=== PATIENT | male | born 1950 | race Caucasian/White ===

== ENCOUNTER 2018-07-24 12:25 | Observation (INO) | payer MEDICARE, SELFPAY ==
--- NOTE | 2018-07-24 13:04 | C.PDOC ---
History Of Present Illness 68 y/o male pt presents to the ER c/o left upper back pain radiating to the left shoulder for x2 days. Pt reports pain is sharp and denies trauma, heavy lifting, nausea and vomiting. Triage noted chest pain. Patient first denied chest pain but later on states that the chest pain started this morning but has now resolved. Time Seen by Provider: 07/24/18 12:50 Chief Complaint (Nursing): Chest Pain History Per: Patient History/Exam Limitations: no limitations Onset/Duration Of Symptoms: Days (x2) Current Symptoms Are (Timing): Still Present Past Medical History Reviewed: Historical Data, Nursing Documentation, Vital Signs Vital Signs: Last Vital Signs Temp 97.4 F L 07/24/18 12:30 Pulse 83 07/24/18 12:30 Resp 18 07/24/18 12:30 BP 173/94 H 07/24/18 12:30 Pulse Ox 100 07/24/18 12:30 - Medical History PMH: Arthritis, Bronchitis Surgical History: Appendectomy Family History: States: Unknown Family Hx - Social History Hx Alcohol Use: Yes Hx Substance Use: No - Immunization History Hx Tetanus Toxoid Vaccination: No Hx Influenza Vaccination: Yes Hx Pneumococcal Vaccination: No Review Of Systems Except As Marked, All Systems Reviewed And Found Negative. Constitutional: Positive for: Other (Pt is currently chest pain free at this time ) Cardiovascular: Positive for: Chest Pain Musculoskeletal: Positive for: Back Pain (upper ) Physical Exam - Physical Exam Appears: Non-toxic, No Acute Distress Skin: Normal Color, Warm, Dry Head: Atraumatic, Normacephalic Eye(s): bilateral: Normal Inspection, PERRL, EOMI Nose: Normal Oral Mucosa: Moist Chest: Symmetrical Cardiovascular: Rhythm Regular, No Murmur Respiratory: Normal Breath Sounds, No Rales, No Rhonchi, No Wheezing Gastrointestinal/Abdominal: Normal Exam, Soft, No Tenderness Back: No CVA Tenderness, No Vertebral Tenderness, Other (tenderness to left upper back area; reproducible pain; no gross deformity) Extremity: Normal ROM Extremity: Bilateral: Atraumatic, Normal Color And Temperature Neurological/Psych: Oriented x3, Normal Speech ED Course And Treatment - Laboratory Results Result Diagrams: 07/24/18 13:21 ECG: Interpreted By Me, Viewed By Me ECG Rhythm: Sinus Rhythm ECG Interpretation: Normal Interpretation Of ECG: normal intervals, normal axis. no ST/T wave abnormalities Rate From EC O2 Sat by Pulse Oximetry: 100 (RA) Pulse Ox Interpretation: Normal - Other Rad chest X-Ray: Read By Radiologist Interpretation: Accession No. : [id number]. Patient Name / ID : EWELINA ARECHIGA / [id number]. Exam Date : 07/24/2018 13:14:41 ( Approved ). Study Comment : Sex / Age : M / 68Y. Creator : Sonya Zelaya. Dictator : Cinda Aleman MD. Circuit Design Engineer : Girl Friday : Cinda Aleman MD. Approver2 : Report Date : 07/24/2018 13:18:02. My Comment : . Date of service: 07/24/2018. PROCEDURE: CHEST RADIOGRAPH, 1 VIEW. HISTORY: SOB. COMPARISON: 08/13/2015. FINDINGS: LUNGS: The lungs are well inflated and clear. PLEURA: No pneumothorax or pleural effusion. CARDIOVASCULAR: The heart is normal in size. No aortic atherosclerotic calcifications present. OSSEOUS STRUCTURES: Within normal limits for the patient's age. VISUALIZED UPPER ABDOMEN: Normal. OTHER FINDINGS: None. IMPRESSION: No active pulmonary disease. Medical Decision Making Medical Decision Making: Assessment: chest pain and upper back pain. Plans: -- chem labs -- blood work -- EKG -- CXR -- aspirin -- Toradol -- tylenol [facility] Pee Mondragon'ana service Disposition Discussed With : Sean Mondragon Doctor Will See Patient In The: Hospital Counseled Patient/Family Regarding: Studies Performed, Diagnosis - Disposition Disposition: HOSPITALIZED Disposition Time: 14:54 Condition: FAIR Forms: [facility] (Pakistani) - Clinical Impression Clinical Impression: Chest pain - Scribe Statement The provider has reviewed the documentation as recorded by the Scribe Finley Do Provider Attestation: All medical record entries made by the Scribe were at my direction and personally dictated by me. I have reviewed the chart and agree that the record accurately reflects my personal performance of the history, physical exam, medical decision making, and the department course for this patient. I have also personally directed, reviewed, and agree with the discharge instructions and disposition.
[2018-07-24 13:18] LABS: BASO % 0.7 % (0.0-2.0); EOS # 0.3 K/uL (0.0-0.7); EOS % 4.4 % (0.0-4.0); LYMPH % 16.5 % (20.0-40.0); MEAN CELL VOLUME 91.8 fL (80.0-94.0); MEAN CORPUSCULAR HEMOGLOBIN 30.2 pg (27.0-31.0); MEAN CORPUSCULAR HGB CONC 32.9 g/dL (33.0-37.0); MEAN PLATELET VOLUME 10.9 fL (7.2-11.7); MONO # 0.4 K/uL (0.0-0.8); MONO % 6.1 % (0.0-10.0); NEUT # 4.6 K/uL (1.8-7.0); NEUT % 72.3 % (50.0-75.0); RBC 4.65 Mil/uL (4.40-5.90); RED CELL DISTRIBUTION WIDTH 15.2 % (11.5-14.5); WHITE BLOOD COUNT 6.3 K/uL (4.8-10.8)
--- NOTE | 2018-07-24 13:54 | RAD ---
Date of service: 07/24/2018 PROCEDURE: CHEST RADIOGRAPH, 1 VIEW HISTORY: SOB COMPARISON: 08/13/2015. FINDINGS: LUNGS: The lungs are well inflated and clear. PLEURA: No pneumothorax or pleural effusion. CARDIOVASCULAR: The heart is normal in size. No aortic atherosclerotic calcifications present. OSSEOUS STRUCTURES: Within normal limits for the patient's age. VISUALIZED UPPER ABDOMEN: Normal. OTHER FINDINGS: None. IMPRESSION: No active pulmonary disease.
[2018-07-24 15:12] LABS: B-TYPE NATRIURETIC PEPTIDE 173 pg/mL (0-900)
[2018-07-24 15:35] LABS: ALB/GLOB RATIO 1.5 (1.0-2.1); ALBUMIN 4.3 g/dL (3.5-5.0); ALT/SGPT 22 U/L (21-72); AST/SGOT 31 U/L (17-59); BLOOD UREA NITROGEN 26 mg/dL (9-20); GFR NON-AFRICAN AMERICAN 55
[2018-07-24] MEDS ORDERED: Morphine 4 MG/ML VIAL IV STA (15:37)
[2018-07-24] MEDS ORDERED: (Novolin R) Insulin Human Regular 100 units/ml vial IV ONE (15:37)
[2018-07-24] MEDS ORDERED: (Novolin R) Insulin Human Regular 100 units/ml vial ONE (15:54)
[2018-07-24 17:52] VITALS: BMI 29.2
[2018-07-24] MEDS: Diclofenac Sodium Delayed Release 50 mg EC Tab PO SCH (18:16)
--- NOTE | 2018-07-24 19:42 | CP.PCM.HP ---
Past Patient History - Past Social History Smoking Status: Light Smoker < 10 Cigarettes Daily - PULMONARY Hx Bronchitis: Yes - ENDOCRINE/METABOLIC Hx Diabetes Mellitus Type 2: Yes - MUSCULOSKELETAL/RHEUMATOLOGICAL Hx Arthritis: Yes - PSYCHIATRIC Hx Substance Use: No - SURGICAL HISTORY Hx Appendectomy: Yes Meds Allergies/Adverse Reactions: Allergies Allergy/AdvReac Type Severity Reaction Status Date / Time No Known Allergies Allergy Verified 08/13/15 12:42 Physical Exam - Constitutional Appears: Well - Head Exam Head Exam: ATRAUMATIC, NORMAL INSPECTION, NORMOCEPHALIC - Eye Exam Eye Exam: EOMI, Normal appearance, PERRL Pupil Exam: NORMAL ACCOMODATION, PERRL - ENT Exam ENT Exam: Mucous Membranes Moist, Normal Exam - Neck Exam Neck exam: Positive for: Normal Inspection - Respiratory Exam Respiratory Exam: Decreased Breath Sounds - Cardiovascular Exam Cardiovascular Exam: REGULAR RHYTHM, +S1, +S2 - GI/Abdominal Exam GI & Abdominal Exam: Diminished Bowel Sounds, Soft - Rectal Exam Rectal Exam: Deferred Results - Vital Signs Recent Vital Signs: Last Vital Signs Temp 98.2 F 07/24/18 17:30 Pulse 69 07/24/18 18:46 Resp 20 07/24/18 17:30 BP 164/93 H 07/24/18 18:46 Pulse Ox 96 07/24/18 17:30 - Labs Result Diagrams: 07/24/18 13:21 07/24/18 14:36 Labs: Laboratory Results - last 24 hr 07/24/18 07/24/18 13:21 14:36 WBC 6.3 RBC 4.65 Hgb 14.0 Hct 42.7 MCV 91.8 MCH 30.2 MCHC 32.9 L RDW 15.2 H Plt Count 145 MPV 10.9 Neut % (Auto) 72.3 Lymph % (Auto) 16.5 L Woods % (Auto) 6.1 Eos % (Auto) 4.4 H Baso % (Auto) 0.7 Neut # (Auto) 4.6 Lymph # (Auto) 1.0 Woods # (Auto) 0.4 Eos # (Auto) 0.3 Baso # (Auto) 0.0 Sodium 133 Potassium 4.6 Chloride 98 Carbon Dioxide 24 Anion Gap 15 BUN 26 H Creatinine 1.3 Est GFR ( Amer) > 60 Est GFR (Non-Af Amer) 55 Random Glucose 448 H* D Calcium 9.0 Total Bilirubin 0.5 AST 31 ALT 22 Alkaline Phosphatase 122 Troponin I < 0.0120 NT-Pro-B Natriuret Pep 173 Total Protein 7.2 Albumin 4.3 Globulin 2.9 Albumin/Globulin Ratio 1.5
[2018-07-24 20:10] LABS: CK-MB 0.72 ng/mL (0.0-3.38)
[2018-07-24] MEDS ORDERED: Iohexol 300 100 ML IJ ONE (21:15)
[2018-07-24] MEDS: (Novolog) Insulin Aspart, Recombinant 100 u/ml 10 ml vial SC SCH (21:52)
[2018-07-25 05:13] LABS: CK-MB 0.97 ng/mL (0.0-3.38)
[2018-07-25] MEDS: (Novolog) Insulin Aspart, Recombinant 100 u/ml 10 ml vial SC SCH ×3 (07:30→16:40)
[2018-07-25 07:52] VITALS: RESP 20
[2018-07-25] MEDS ORDERED: Enoxaparin 40 mg Syringe SC SCH (10:00)
[2018-07-25] MEDS: Diclofenac Sodium Delayed Release 50 mg EC Tab PO SCH ×2 (11:28→18:04)
--- NOTE | 2018-07-25 12:23 | CP.PCM.PN ---
Subjective - Date & Time of Evaluation Date of Evaluation: 07/25/18 Time of Evaluation: 11:15 - Subjective Subjective: clinically same Objective - Vital Signs/Intake and Output Vital Signs (last 24 hours): Temp Pulse Resp BP Pulse Ox 97.5 F L 60 20 151/87 H 98 07/25/18 07:00 07/25/18 07:00 07/25/18 07:00 07/25/18 11:28 07/25/18 07:00 - Medications Medications: Current Medications Allopurinol (Zyloprim) 100 mg PO BID [facility] Last Admin: 07/25/18 11:21 Dose: 100 mg Amlodipine Besylate (Norvasc) 10 mg PO DAILY [facility] Last Admin: 07/25/18 11:21 Dose: 10 mg Aspirin (Ecotrin) 81 mg PO DAILY [facility] Last Admin: 07/25/18 11:22 Dose: 81 mg Clopidogrel Bisulfate (Plavix) 75 mg PO DAILY [facility] Last Admin: 07/25/18 11:22 Dose: 75 mg Colchicine (Colocrys) 0.6 mg PO BID [facility] Last Admin: 07/25/18 11:28 Dose: 0.6 mg Diclofenac Sodium (Voltaren) 50 mg PO BID [facility] Last Admin: 07/25/18 11:28 Dose: 50 mg Enoxaparin Sodium (Lovenox) 40 mg SC DAILY [facility] Last Admin: 07/25/18 11:28 Dose: 40 mg Famotidine (Pepcid) 20 mg PO BID [facility] Last Admin: 07/25/18 11:21 Dose: 20 mg Insulin Aspart (Novolog) 0 unit SC [facility]; Protocol Last Admin: 07/25/18 07:30 Dose: Not Given Loratadine (Claritin) 10 mg PO DAILY [facility] Last Admin: 07/25/18 11:22 Dose: 10 mg Metformin HCl (Glucophage) 1,000 mg PO BID [facility] Last Admin: 07/25/18 11:22 Dose: 1,000 mg Rosuvastatin Calcium (Crestor) 10 mg PO HS [facility] Last Admin: 07/24/18 21:49 Dose: 10 mg Tramadol HCl (Ultram) 50 mg PO TID PRN PRN Reason: Pain, severe (8-10) Last Admin: 07/25/18 06:54 Dose: 50 mg - Labs Labs: 07/24/18 13:07/24/18 14:36 - Constitutional Appears: Well - Head Exam Head Exam: ATRAUMATIC, NORMAL INSPECTION, NORMOCEPHALIC - Eye Exam Eye Exam: EOMI, Normal appearance, PERRL Pupil Exam: NORMAL ACCOMODATION, PERRL - ENT Exam ENT Exam: Mucous Membranes Moist, Normal Exam - Neck Exam Neck Exam: Full ROM, Normal Inspection. absent: Lymphadenopathy - Respiratory Exam Respiratory Exam: Decreased Breath Sounds - Cardiovascular Exam Cardiovascular Exam: REGULAR RHYTHM, +S1, +S2 - GI/Abdominal Exam GI & Abdominal Exam: Soft, Diminished Bowel Sounds - Rectal Exam Rectal Exam: Deferred
[2018-07-25 12:28] LABS: CK-MB 0.86 ng/mL (0.0-3.38)
--- NOTE | 2018-07-25 14:12 | CT ---
PROCEDURE: CT Angiography Chest, Abdomen and Pelvis with and without intravenous contrast HISTORY: r/o aneurysm COMPARISON: None. TECHNIQUE: Contiguous axial images of the chest, abdomen and pelvis were obtained in the phase of aortic enhancement. A noncontrast enhanced CT of the chest was also obtained to evaluate for possible intramural thrombus. Coronal and sagittal reformats were generated. IV dose administered: 100 mL Omnipaque 300 Radiation dose: Total exam DLP = 2606.99 mGy-cm. This CT exam was performed using one or more of the following dose reduction techniques: Automated exposure control, adjustment of the mA and/or kV according to patient size, and/or use of iterative reconstruction technique. FINDINGS: CT ANGIOGRAPHY OF THE CHEST WITH & WITHOUT CONTRAST: AORTA (CHEST AND ABDOMEN): Ascending aortic ectasia measuring up to 3.7 cm. Descending infrarenal aortic ectasia measuring up to 2.7 cm. No aneurysm or dissection. No intramural thrombus identified in the thoracic aorta on the non-contrast ct of the chest. The celiac axis, superior mesenteric artery, inferior mesenteric artery and the renal arteries are widely patent. The pelvic arteries are unremarkable. LUNGS: Clear. No nodule, mass or consolidation. MEDIASTINUM: Unremarkable. Normal caliber aorta and pulmonary arterial trunk. No aortic dissection. Normal size heart. LYMPH NODES: Unremarkable. PLEURA: Unremarkable. No pneumothorax. No pleural fluid. BONES: Unremarkable. OTHER FINDINGS: None. CT ANGIOGRAPHY OF THE ABDOMEN AND PELVIS WITH CONTRAST: LIVER: Hepatic steatosis. No gross lesion or ductal dilatation. GALLBLADDER AND BILE DUCTS: Unremarkable. PANCREAS: Unremarkable. No gross lesion or ductal dilatation. SPLEEN: Unremarkable. ADRENALS: Unremarkable. No mass. KIDNEYS AND URETERS: Bilateral nonobstructive renal calculi. No hydronephrosis. No solid mass. VASCULATURE: Unremarkable. No aortic aneurysm. No aortic atherosclerotic calcification or mural plaque present. STOMACH AND BOWEL: Unremarkable. No obstruction. No gross mural thickening. APPENDIX: Prior appendectomy. PERITONEUM: Tiny fat containing umbilical hernia. Small bilateral fat containing inguinal hernias. No free fluid. No free air. LYMPH NODES: Unremarkable. No enlarged lymph nodes. BLADDER: Unremarkable. REPRODUCTIVE: Unremarkable. BONES: Multilevel spinal degenerative changes. Disc osteophyte complex at L5-S1. No acute fracture. OTHER FINDINGS: None. IMPRESSION: No evidence of aortic dissection or central pulmonary embolism. Ascending aortic ectasia measuring up to 3.7 cm. Focal descending infrarenal aortic ectasia measuring up to 2.7 cm. Additional findings as above.
[2018-07-25 15:43] VITALS: BP 151/89; PULSE 66; TEMP 97.7; O2SAT 98
--- NOTE | 2018-07-25 17:50 | CP.PCM.PN ---
Subjective - Date & Time of Evaluation Date of Evaluation: 07/25/18 Time of Evaluation: 11:00 - Subjective Subjective: alert and orientedx3, denies sob or chest pains noted. Objective - Vital Signs/Intake and Output Vital Signs (last 24 hours): Temp Pulse Resp BP Pulse Ox 97.7 F 66 20 151/89 H 98 07/25/18 15:00 07/25/18 15:00 07/25/18 15:00 07/25/18 15:00 07/25/18 15:00 Intake and Output: 07/25/18 07/25/18 06:59 18:59 Intake Total 480 Balance 480 - Medications Medications: Current Medications Allopurinol (Zyloprim) 100 mg PO BID [facility] Last Admin: 07/25/18 11:21 Dose: 100 mg Amlodipine Besylate (Norvasc) 10 mg PO DAILY [facility] Last Admin: 07/25/18 11:21 Dose: 10 mg Aspirin (Ecotrin) 81 mg PO DAILY [facility] Last Admin: 07/25/18 11:22 Dose: 81 mg Clopidogrel Bisulfate (Plavix) 75 mg PO DAILY [facility] Last Admin: 07/25/18 11:22 Dose: 75 mg Colchicine (Colocrys) 0.6 mg PO BID [facility] Last Admin: 07/25/18 11:28 Dose: 0.6 mg Diclofenac Sodium (Voltaren) 50 mg PO BID [facility] Last Admin: 07/25/18 11:28 Dose: 50 mg Enoxaparin Sodium (Lovenox) 40 mg SC DAILY [facility] Last Admin: 07/25/18 11:28 Dose: 40 mg Famotidine (Pepcid) 20 mg PO BID [facility] Last Admin: 07/25/18 11:21 Dose: 20 mg Insulin Aspart (Novolog) 0 unit SC [facility]; Protocol Last Admin: 07/25/18 16:40 Dose: 3 units Loratadine (Claritin) 10 mg PO DAILY [facility] Last Admin: 07/25/18 11:22 Dose: 10 mg Metformin HCl (Glucophage) 1,000 mg PO BID [facility] Last Admin: 07/25/18 11:22 Dose: 1,000 mg Rosuvastatin Calcium (Crestor) [address] [facility] Last Admin: 07/24/18 21:49 Dose: 10 mg Tramadol HCl (Ultram) 50 mg PO TID PRN PRN Reason: Pain, severe (8-10) Last Admin: 07/25/18 06:54 Dose: 50 mg - Labs Labs: 07/24/18 13:21 07/24/18 14:36 Assessment and Plan - Assessment and Plan (Free Text) Assessment: Patient admitted with chest pains, seen and examined. Alert and oriented x3, denies any sob or chest pains, NAD. Cleared by DR Keller, discussed with DR Mateo Mondragon, plan to discharge home today. Advised to follow up with PMD and the c ardiologist as advised.
--- NOTE | 2018-07-25 20:52 | CON ---
DATE: 07/25/2018 CARDIOLOGY CONSULTATION REASON FOR CONSULTATION: Left-sided chest pain and left shoulder pain. HISTORY OF PRESENT ILLNESS: The patient is a 68-year-old male, originally from [facility], who has a history of hypertension and diabetes mellitus, presented with a sharp pain involving the left shoulder, left upper back and the adjacent part of the anterior chest wall. The patient denies any recent injury or fall. The patient denies any associated diaphoresis. The patient denies any retrosternal chest pain or shortness of breath. SOCIAL HISTORY: The patient is a nonsmoker. He is retired. He used to work in a pharmaceutical industry. MEDICATIONS: Claritin 10 mg once a day, colchicine 0.6 mg twice a day, Crestor 10 mg once a day, aspirin 81 mg once a day, Glucophage 1 g twice a day, Lovenox 40 mg subcutaneously once a day, Norvasc 10 mg once a day, Plavix 75 mg once a day, Voltaren 50 mg b.i.d., Zyloprim 100 mg twice a day. REVIEW OF SYSTEMS: No nausea or vomiting. No fever or chills. No dizziness or syncope. No central back pain. PHYSICAL EXAMINATION: GENERAL: The patient is an elderly male who does not appear to be in acute distress. VITAL SIGNS: Blood pressure 158/98, heart rate 60, temperature 97.5, respirations 20. HEENT: Normocephalic. CHEST: Clear. HEART: S1 and S2, regular. ABDOMEN: Soft. EXTREMITIES: No edema. LABORATORY DATA: SMA-7: Sodium 133, potassium 4.6, chloride 98, CO2 of 24, glucose 148, BUN 26, creatinine 1.3. Three sets of troponin are negative. D-dimer is elevated at 457. Hemoglobin, hematocrit, white count and platelet count are within normal limit. Chest x-ray was unremarkable except for prominent bronchovascular markings. EKG revealed sinus rhythm with APCs at a rate of 62. ASSESSMENT: 1. Atypical chest pain. 2. Rule out aortic aneurysm. 3. Uncontrolled hypertension. 4. Uncontrolled diabetes mellitus. RECOMMENDATIONS: Continue Crestor 10 mg once a day, aspirin 81 mg once a day, Norvasc 10 mg once a day. I will administer one dose of Lasix 20 mg IV push, obtain an echocardiogram and follow up aortic CT angio. Marcus Keller MD [facility] # [id number]
--- NOTE | 2018-07-27 12:51 | CARD ---
APPROVED REPORT Date of service: 07/24/2018 EKG Measurement Heart [id number] <Conclusion> Normal sinus rhythm Normal ECG
--- NOTE | 2018-07-27 12:51 | CARD ---
APPROVED REPORT Date of service: 07/24/2018 EKG Measurement Heart [id number] <Conclusion> Sinus rhythm with premature atrial complexes Otherwise normal ECG
== END 2018-07-25 18:46 | disposition home or self-care (01) ==
LOC: C.ER 12:25 → C.9E 14:53 → C.5S 17:05
PROVIDERS: ADMIT Internal Medicine Nephrology; ATTEND Internal Medicine Nephrology
DX: R07.89 Other chest pain (principal); E11.65 Type 2 diabetes mellitus with hyperglycemia; I10 Essential (primary) hypertension; F17.210 Nicotine dependence, cigarettes, uncomplicated; M19.90 Unspecified osteoarthritis, unspecified site; M25.512 Pain in left shoulder
CPT/HCPCS: 36415; 71045; 71275; 74175; 80053; 82948; 83880; 84484; 85025; 85378; 93005; 96372; 96374; 96375; 97110; 97140; 97161; 99285; G0378; G8978; G8979; G8980; J1650; J1885; J1940; J2270; Q9967